=== PATIENT | male | born 1950 | race African-American/Black ===

== ENCOUNTER 2020-03-07 14:48 | Emergency (ER) | payer MEDICARE, OTHER ==
[~2020-03-07] VITALS: Ht 182.9 cm; Wt 120.0 kg
[~2020-03-07 14:48] MED LIST: HYDR25TA; LASIX; LISI10TA5
[2020-03-07 15:48] VITALS: BP 134/77
== END 2020-03-07 15:53 | disposition home or self-care (01) ==
LOC: ER 15:13
DX: L91.0 Hypertrophic scar (principal); L72.3 Sebaceous cyst; I10 Essential (primary) hypertension
CPT/HCPCS: 99283

== ENCOUNTER 2020-03-14 14:18 | Emergency (ER) | payer MEDICARE ==
[~2020-03-14] VITALS: Ht 182.9 cm; Wt 115.0 kg
[2020-03-14 14:33] VITALS: BP 182/98
== END 2020-03-14 17:03 | disposition home or self-care (01) ==
LOC: ER 14:18
DX: L02.11 Cutaneous abscess of neck (principal); I11.9 Hypertensive heart disease without heart failure; Z79.899 Other long term (current) drug therapy
CPT/HCPCS: 99283